=== PATIENT | female | born 1975 | race Caucasian/White ===

== ENCOUNTER 2023-07-16 17:23 | Emergency (ER) | payer OTHER, SELFPAY ==
[2023-07-16] VITALS (8 sets, daily range): BP systolic 100–123; BP diastolic 70–89; BMI 23.9
[2023-07-16 18:06] LABS: % Basophils 0.3 % (0-2); % Eosinophils 0.3 % (0-6); % Immature Granulocytes 0.3 % (0-0.5); % Lymphocytes 5.4 % (20.5-51.1); % Monocytes 4.1 % (1.7-9.3); % Neutrophils 89.6 % (42.2-75.2); Absolute Lymphocytes 0.5 10^3/uL (1.2-3.4); Absolute Monocytes 0.4 10^3/uL (0.1-0.6); Absolute Neutrophils 8.5 10^3/uL (1.4-6.5); Hematocrit 43.2 % (37.0-47.0); Hemoglobin 14.8 g/dL (12.0-16.0); Mean Corp Hgb Conc. 34.3 g/dL (33.0-37.0); Mean Corpuscular Hgb 32.2 pg (27.0-31.0); Mean Corpuscular Volume 94.1 fL (81.0-99.0); Mean Platelet Volume 11.1 fL (7.4-10.4); Nucleated Red Blood Cells % 0 %; Platelet Count 239 10^3/uL (130-400); Red Blood Cell Count 4.59 10^6/uL (4.20-5.40); Red Cell Dist. Width 12.3 % (11.5-14.5); White Blood Cell Count 9.5 10^3/uL (4.8-10.8)
[2023-07-16 18:17] LABS: HCG, Serum Qualitative Screen Negative
--- NOTE | 2023-07-16 18:19 | ED.GENMED ---
History of Present Illness
General
Chief Complaint: Abdominal Pain
Source: patient
Exam Limitations: none
Time Seen by Provider: 07/16/23 17:55
Travel History
Have you had any contact with someone who has COVID-19?: No
Do you have any symptoms of coronavirus? Fever > 100 degrees, chills, cough, shortness of breath, sore throat, loss of taste or smell, muscle aches, or headache?: No
History of Present Illness
History of Present Illness:
This is a 48 year old female that comes in with c/o left sided abd pain States that she has pain under the ribs on the left side. States that she has had this day. States that she had vomiting and diarrhea and the vomiting and diarrhea stopped
around 5am. Then she had diarrhea again when she got here. State that that her and daughter had the GI virus. States that this pain is not going away. States that she has a fever of 101 at home and that the pain goes up into her chest State
that this all started with a headache. Denies any chills, SOB, dizziness, urinary burning.
Past History
Past History
ED Past Medical History: None; Negative Asthma, HTN, Hypercholesterolemia or NIDDM
ED Past Surgical History: None
Social History
Tobacco: Non-smoker
Alcohol: Daily (Wine or beer 2 glasses)
Personal:
Living: with family
Review of Systems
Review of Systems
All Other Systems: ROS reviewed and negative except as documented in HPI and ROS
Constitutional: Reports fever; Denies chills
EENT: Reports no symptoms
Respiratory: Denies cough or trouble breathing
Cardiac: Reports chest pain
ABD/GI: Reports abdominal pain, nausea, vomiting and diarrhea
: Reports no symptoms; Denies dysuria, frequency or urgency
Musculoskeletal: Reports no symptoms
Skin: Reports no symptoms
Neurological: Reports headache (Started with a headache but gone now); Denies dizzy
Psychiatric: Reports no symptoms
Phy Exam
General Physical Exam
General Presentation: no apparent distress
General age: appears stated age
General Skin: warm and dry
General Habitus: normal
General Mental: alert
General Hydration: appears well hydrated
ENT Exam
ENT Exam: TM's normal, pharynx normal and neck supple
Eye Exam
Eye Exam: EOMI
Cardiovascular Exam
Cardiovascular Exam: regular rate/rhythm, no edema, no murmur and normal peripheral pulses
Pulmonary Exam
Pulmonary Exam: lungs clear, no respiratory distress, no rales, chest non tender, no crackles, no rhonchi, no wheezing and no cough
Gastrointestinal Exam
Gastrointestinal Exam: normal bowel sounds, non tender, soft, no organomegaly, no pulsatile mass and non distended
Musculoskeletal Exam
Musculoskeletal Exam: full ROM and no edema
Skin Exam
Skin Exam: normal color, warm/dry, no rash and no petechia
Psychiatric Exam
Psychiatric Exam: normal mood/affect
Course
Orders/Labs/Results
Orders:
Orders
07/16/23 17:28
Electrocardiogram (*1) Urgent
Reason for Study: Chest Pain
EKG- Treatment ONCE
07/16/23 17:38
Complete Blood Count/With Diff Urgent
Comprehensive Metabolic Panel Urgent
HCG, Serum Qualitative Screen Urgent
Comment: ADD ON
Troponin I Urgent
07/16/23 18:03
0.9% Sodium Chloride 1000 ml [Nss] 1,000 ml IV BOLUS
Dicyclomine [Bentyl] 10 mg PO NOW STA
Iohexol [Omnipaque] See Protocol PO NOW STA
Test Result ONCE
07/16/23 18:04
CT Abd/pel W Iv And Oral Contr Urgent
Comment:
Reason For Exam: Left sided abd pain
07/16/23 18:05
Add On- LAB Urgent
Tests Added?: hcg qualitative
07/16/23 18:35
Ondansetron Injectable [Zofran] 4 mg .ROUTE .STK-MED ONE
07/16/23 18:36
Ondansetron Injectable [Zofran] 4 mg IV NOW STA
07/16/23 20:54
Urinalysis Reflex To Culture Urgent
Date Specimen was Collected: 07/16/23
Time Specimen was Collected: 20:51
Urine Microscopic Reflex Cult Urgent
Abnormal Lab Results
07/16/23 07/16/23
17:38 20:54
MCH 32.2 H pg
(27.0-31.0)
MPV 11.1 H fL
(7.4-10.4)
Absolute Neuts (auto) 8.5 H 10^3/uL
(1.4-6.5)
Absolute Lymphs (auto) 0.5 L 10^3/uL
(1.2-3.4)
Neutrophils % 89.6 H %
(42.2-75.2)
Lymphocytes % 5.4 L %
(20.5-51.1)
Sodium 134 L mmol/L
(135-145)
Glucose 141 H mg/dl
(70-99)
Urine Ketones Trace A
(Negative)
Ur Occult Blood Reflex Trace A
(Negative)
07/16/23 17:38
07/16/23 17:38
Glucose NONFASTING, Urine negative for infection. HCG negative. Troponin <0.012
Vital Signs
Initial and Last Documented VS:
Initial Vital Signs
Temp Pulse Resp BP Pulse Ox
99.6 F 115 20 100/79 97
07/16/23 17:24 07/16/23 17:24 07/16/23 17:24 07/16/23 17:24 07/16/23 17:24
Last Documented Vital Signs
Temp Pulse Resp BP Pulse Ox
99.3 F 100 20 102/80 97
07/16/23 22:23 07/16/23 22:23 07/16/23 22:23 07/16/23 22:23 07/16/23 22:23
MDM/Problems Addressed
Differential Diagnosis Includes:
Viral GI syndrome, Diverticulitis,
MDM/Problems Addressed:
This is a 48 year old female that comes in with c/o left upper abd pain. States that she has vomiting and diarrhea yesterday and then around 5am this stopped. States that she had a fever and when she got here the diarrhea started again. States that
she has a fever and it started with a headache .
Will get labs and CT scan. Give IV fluids and Medication for cramping.
Back into see patient. Explained that the CT scan shows that she has Colitis. Will start patient on antibiotics. Patient to stay way from milk and milk products until the diarrhea stops. Follow up with the family doctor for recheck. RETURN WITH ANY
CONCERNS.
Chronic conditions affecting care:
NA
Acute Exacerbation and/or Progression of Chronic Illness:
NA
*Radiology
Radiology exam reviewed: radiology read reviewed (CT-Suspected mild cute infectious colitis in the splenic flexure, descending, and sigmoid colon. Mild extrahepatic biliary dilation. Mild splenomegaly. Mild grade 1 anterolisthesis of L5 on S1
secondary to bilateral L5 pars interarticularis spondylolysis. )
*Pulse Oximetry
Patient hypoxic: no
*EKG
Interpreted by ED Provider?: Yes
Heart Rate: 103
Rate: tachycardiac
Rhythm: sinus tachycardia
[place]: normal axis
Interval: normal interval
QRS Pattern: normal QRS
Ischemia: T-wave inversion (II, III, aVF, V3, V4, V5, V6, )
*Information Technology Professor Interpretation
Rate: tachycardiac
Heart Rate: 110
*Critical Care Note
Total Time (30-74mins, 75-104mins- exclusive of procedures): Not Applicable
ED Attending Note
-
Portions of this chart may have been created with voice recognition software.� Occasional wrong word or��sound alike� substitutions may have occurred due to the inherent limitations of voice recognition software.
Discharge Plan
Departure
Patient Disposition: Home (Routine Discharge)
Date of Disposition: 07/16/23
Time of Disposition: 22:33
Patient with high blood pressure during this ER visit?: No
Condition: Good
Covid-19: Not Applicable
Discharge Problem:
Colitis
Instructions: Colitis (DC)
Prescriptions:
New
amoxicillin-pot clavulanate 875-125 mg tablet
1 tab PO BID Qty: 19 0RF
Referrals:
NONE,* [Family Provider] -
Activity Restrictions/Additional Instructions:
As discussed, your blood work is normal. Your CT shows that you have Colitis. You have been given your first dose of antibiotic here and a prescription has been sent to your Pharmacy. Please take as directed until finished. Follow up with the family
doctor for recheck. Please stay away form milk and milk products as long as you have diarrhea. Chicken, rive and potatoes are easily digested. IF YOU HAVE INCREASED OR CHANGING PAIN, FEVER, OR YOU HAVE ANY OTHER CONCERNS PLEASE RETURN TO THE
EMERGENCY ROOM.
Interventions
Interventions:
*Risk Screen - Suicide Last Done: 07/16/23 17:24
*General Assessment Last Done: 07/16/23 17:24
*Neglect/Abuse Screening Last Done: 07/16/23 17:24
ED- Fall Risk Assessment Last Done: 07/16/23 19:27
*ED COVID-19 Vaccine History Last Done: 07/16/23 18:53
LD-Bbuuwv-Oslvtjepcv Assessment Last Done: 07/16/23 19:27
Discharge Date and Time
Print Language: SWAZI
[2023-07-16 18:21] LABS: ALT (SGPT) 20 U/L (0-35); AST (SGOT) 23 U/L (14-36); Albumin 4.6 g/dl (3.5-5.0); Alkaline Phosphatase 52 U/L (38-126); Blood Urea Nitrogen 16 mg/dl (7-17); Calcium 9.7 mg/dl (8.4-10.2); Carbon Dioxide 25 mmol/L (22-30); Chloride 98 mmol/L (98-107); Estimated Creatinine Clearance 93 ml/min; Glucose 141 mg/dl (70-99); Sodium 134 mmol/L (135-145); Total Bilirubin 1.3 mg/dl (0.2-1.3); Total Protein 7.4 g/dl (6.3-8.2); eGFR > 60.00
[2023-07-16] MEDS: BENTYL 10 MG PO (18:29)
[2023-07-16] MEDS: OMNIPAQUE 50 ML PO (18:29)
[2023-07-16 18:32] LABS: Troponin I < 0.012 ng/ml
[2023-07-16] MEDS: NSS 1000 IV (18:32)
[2023-07-16] MEDS: ZOFRAN 4 MG IV (18:36)
[2023-07-16 21:01] LABS: Urine Albumin Negative (Neg - Trace); Urine Bilirubin Negative (Negative); Urine Character Clear (Clear); Urine Color Yellow; Urine Glucose Negative (Negative); Urine Ketone Trace (Negative); Urine Leukocyte Negative (Negative); Urine Nitrite Negative (Negative); Urine Occult Blood Trace (Negative); Urine Urobilinogen Negative (Neg - 1+)
[2023-07-16 21:16] LABS: Urine Red Blood Cell 0-2 /HPF (0-2); Urine Squamous Cell 0-2 /LPF (Few); Urine White Cell None Seen /HPF (0-5)
[2023-07-16] MEDS: AUGMENTIN 875 MG/125 MG 1 TABLET PO (22:55)
== END 2023-07-16 23:00 | disposition home or self-care (01) ==
LOC: EMR 17:23
PROVIDERS: Clinical Nurse Specialist Family Health; Emergency Medicine; EMERGENCY PHYSICIAN Emergency Medicine
DX: K52.9 Noninfective gastroenteritis and colitis, unspecified (principal)
CPT/HCPCS: 99285; 96374; 96361; 74177; 80053; 81003; 81015; 84484; 84703; 85025; 93005; Q9967